=== PATIENT | male | born 1990 | race Caucasian/White ===

== ENCOUNTER 2018-04-12 13:19 | Emergency (ER) | payer OTHER, SELFPAY ==
[2018-04-12 13:20] VITALS: BP 162/95; PULSE 79; RESP 18; TEMP 36.6; O2SAT 99; BMI 28.6
--- NOTE | 2018-04-12 14:08 | US_ITS ---
STUDY: SCROTUM ULTRASOUND REASON FOR EXAM: Male, 28 years old. Pain/tenderness of the left testicle. TECHNIQUE: Ultrasound evaluation of the scrotum was performed with color Doppler and static sainz-scale imaging. COMPARISON: None. FINDINGS: RIGHT TESTICLE INTRATESTICULAR: There is a normal size of the right testicle. The right testicle measures 3.5 cm x 2.4 cm x 2.2 cm. There is a homogenous echotexture. There is normal arterial and normal venous vascularity. There is no demonstrated right testicular mass or cyst. EXTRATESTICULAR: The epididymis is normal in size. The epididymis head measures 0.7 cm. There is normal vascularity of the epididymis. There is a well-defined cystic structure within the epididymis, without internal echoes, consistent with an epididymal cyst. This measures 3 mm x 3 mm x 2 mm. There is a small hydrocele. There is no demonstrated varicocele. There is no demonstrated extratesticular mass or cyst. LEFT TESTICLE INTRATESTICULAR: There is a normal size of the left testicle. The left testicle measures 3.6 cm x 2.7 cm x 2.0 cm. There is a homogenous echotexture. There is normal arterial and normal venous vascularity. There is no demonstrated left testicular mass or cyst. Tiny calcifications are seen within the testicle. EXTRATESTICULAR: The epididymis is normal in size. The epididymis head measures 0.8 cm. There is normal vascularity of the epididymis. There is no demonstrated epididymal cystic structure. There is a small hydrocele. There are prominent extratesticular veins consistent with a varicocele. There is no demonstrated extratesticular mass or cyst. US/Testicular with Arterial Flow IMPRESSION: Small bilateral hydroceles. Small right epididymal cyst. Electronically Signed: Jacek Bolden MD at 15:13 EDT Tel [phone], Service support ,
[2018-04-12] MEDS: Ketorolac 60 MG/2 ML Vial IM (14:19)
[2018-04-12 14:31] LABS: Mucous, Urine 0 SEEN /hpf (<or=2+); Red Blood Cells-Urine 0 SEEN /hpf (0-5); Squamous Epithelial Cells - UA 0 SEEN /hpf (0-5); White Blood Cells 0 SEEN /hpf (0-5)
[2018-04-12 14:34] LABS: Color, Urine Yellow (Yellow); Glucose, Dipstick Normal (Normal); Ketone-Dipstick Negative (Negative); Leukocyte Esterase-Dipstick Negative /ul (Negative); Nitrite-Dipstick Negative (Negative); Occult Blood-Urine Negative /ul (Negative); Protein-Dipstick Negative (Negative); Specific Gravity, Urine 1.025 (1.002-1.030); Urine Bilirubin Dipstick Negative (Negative); Urine Clarity Clear (Clear); Urine Urobilinogen Normal (Normal)
[2018-04-12 14:41] LABS: Bacteria RARE /hpf (None Seen)
--- NOTE | 2018-04-12 15:53 | ED.DCSUM_ITS ---
- ER Visit Summary Date of Service: 04/12/18 Chief Complaint: [Left testicle pain] History of Present Illness: The patient is a 28 M [presents to the emergency department with pain in his left testicle started about 2 hours ago. Patient states that he just use the restroom and urinated and when he pulled his boxers up he brushed against his left testicle noticed discomfort. Patient states that discomfort is progressively worsened. Patient having more discomfort with ambulation now. He denies any abdominal pain or back pain. Patient denies any urinary symptoms. Patient denies any fever. Patient denies any trauma to his testicles however he states that he does work out and does run. Patient with no history of STDs and he is monogamous with his partner who he just got engaged to 2 weeks ago.] Physical Examination: [HEENT-PERRLA, EOMI. Cranial nerves II through XII grossly intact. TMs clear. Mucous membranes moist. No adenopathy. Cardiovascular-regular rate and rhythm without murmur or ectopy Lungs-clear to auscultation, chest wall stable without crepitus or subcu emphysema Abdomen-normoactive bowel sounds, soft, nontender, no rebound or rigidity, no peritoneal signs. exam-circumcised male with no penile discharge. Patient has tenderness over the left epididymis that reproduces his pain. There is no evidence of torsion. Normal cremasteric reflex bilaterally. Extremities-intact ?4, normal range of motion, normal pulses, atraumatic] Test Results: [Urinalysis obtained showed no evidence for infection. Testicular ultrasound showed no evidence for torsion. Patient was noted to have a right epididymal cyst and bilateral small hydroceles.] Emergency Department Course and Treatment: [Patient received Toradol 60 mg IM and 1 dose of Bactrim.] Treatment Plan: [Patient will be given a prescription for Bactrim and [place] and referral to urologist on-call Dr. Cleveland Stuart.] Disposition: [Discharged home stable condition] Impression: [Left testicle pain-suspect early epididymitis] This note was generated with [employer] software. It may contain incorrect words, spelling, and punctuation that were not noted in review of the chart prior to signing ED Disposition - Plan for ED Patient: Chief Complaint: Male Pain/Injury Referrals: Siddhartha Heaton III, MD [Primary Care Provider] -
--- NOTE | 2018-04-12 15:53 | ED.DEP ---
ED Disposition - Plan for ED Patient: Chief Complaint: Male Pain/Injury Instructions: ED Epididymitis Prescriptions: Hydrocodone Bitart/Apap 5-325 [[place] 5MG-325MG] 1 tab PO Q4H PRN PRN 2 Days #10 tab PRN Reason: Pain Smz/Tmp Ds [Bactrim Ds] 1 tab PO BID #28 tab Referrals: Siddhartha Heaton III, MD [Primary Care Provider] - 3-5 Days Aden Stuart MD [STAFF PHYSICIAN] - 5-7 Days
[2018-04-12] MEDS: Smz/Tmp Ds Tablet 1 TABLET PO (15:58)
--- NOTE | 2018-04-12 15:59 | DCINST.ED_ITS ---
ED Disposition - Plan for ED Patient: Chief Complaint: Male Pain/Injury Instructions: ED Epididymitis Prescriptions: Hydrocodone Bitart/Apap 5-325 [[place] 5MG-325MG] 1 tab PO Q4H PRN PRN 2 Days #10 tab PRN Reason: Pain Smz/Tmp Ds [Bactrim Ds] 1 tab PO BID #28 tab Referrals: Siddhartha Heaton III, MD [Primary Care Provider] - 3-5 Days Aden Stuart MD [STAFF PHYSICIAN] - 5-7 Days
[2018-04-12 16:06] VITALS: BP 134/77; PULSE 68; RESP 16; O2SAT 98
--- NOTE | 2018-04-12 16:07 | ED.RN ---
REVIEWED D/C INSTRUCTIONS, FOLLOW UP CARE, PRESCRIPTIONS, AND S/S THAT WOULD WARRANT A RETURN TO THE ED WITH PT. PT VERBALIZED AN UNDERSTANDING AND DENIES FURTHER QUESTIONS FOR THIS RN. PT SKIN P/W/D, RESP EVEN AND UNLABORED, PT A&O X 3, NO DISTRESS NOTED. PT AMBULATED OUT OF ED, GAIT STEADY.
== END 2018-04-12 16:08 | disposition home or self-care (01) ==
LOC: ED 15:15
PROVIDERS: Emergency Provider Emergency Medicine; Family Provider Family Medicine; PCP Family Medicine
DX: N45.1 Epididymitis (principal); N43.3 Hydrocele, unspecified; N50.812 Left testicular pain
CPT/HCPCS: 76870; 81001; 93976; 96372; 99283

== ENCOUNTER → 2019-10-28 09:53 | Outpatient (CLI) | payer OTHER, SELFPAY ==
--- NOTE | 2019-10-28 10:01 | RAD_ITS ---
CLINICAL HISTORY: Male, 29 years old. Right shoulder pain. PROCEDURE: ARTHROGRAM - RIGHT SHOULDER CONSENT: The procedure as well as the benefits and possible complications including infection and bleeding were expanding to the patient. Informed consent was obtained. FLUOROSCOPY TIME (if supplied): (65 seconds) minutes/seconds Injection Information: 10 cc of dilute MRI contrast. Number of images obtained: 4 TECHNIQUE: (All elements of maximal sterile barrier technique followed, including US elements as applicable) The overlying skin was prepped and draped in the usual sterile fashion. Following local anesthetic application and under direct fluoroscopic guidance, a 22-gauge spinal needle was placed into the shoulder joint. 2 cc of Isovue-300 was injected. Following this, 10 cc of dilute MRI contrast was injected. The patient tolerated the procedure well. RAD/Arthrogram Shoulder w/ MRI IMPRESSION: Successful right shoulder arthrogram for MRI imaging. Electronically Signed: Jacek Bolden, at 12:47 EST , Service support ,
--- NOTE | 2019-10-28 10:01 | MRI_ITS ---
STUDY: MR RIGHT SHOULDER ARTHROGRAPHY REASON FOR EXAM: Right shoulder pain for 12 weeks, lifting injury. TECHNIQUE: Standardized fat and water weighted pulse sequences were obtained in all 3 orthogonal planes after intra-articular instillation of dilute Dot[place]m. COMPARISON: Arthrogram images obtained prior to the MRI. FINDINGS: Normal supraspinatus tendon. Normal infraspinatus tendon. Normal subscapularis tendon. Normal teres minor tendon. Normal supraspinatus muscle. Normal infraspinatus muscle. Normal subscapularis muscle. Normal teres minor muscle. Normal glenohumeral articulation. Normal humeral head and visualized proximal humerus. Normal biceps labral complex. Normal intracapsular long biceps tendon. Normal labrum. Normal capsulo- ligamentous complex. Normal rotator interval. Normal acromioclavicular articulation. There is a Type II morphology (curved), with a neutral orientation. There is a small volume of subacromial-subdeltoid bursal fluid (T2 coronal images 12-14). Normal visualized coracohumeral and coracoacromial ligaments. There is mild diffuse edema in the proximal anterior deltoid muscle. Normal trapezius muscle. MRI/Upper Ext Jt Only W/Contrast IMPRESSION: Mild subacromial-subdeltoid bursitis. No demonstrated rotator cuff tear or labral tear. Electronically Signed: Werner Salcido MD at 12:23 EST Tel , Service support ,
== END ==
PROVIDERS: Family Provider Family Medicine; PCP Family Medicine; Referring Provider Physician Assistant; Visit Provider Physician Assistant
DX: M25.511 Pain in right shoulder (principal); S43.491A Other sprain of right shoulder joint, initial encounter
CPT/HCPCS: 23350; 73222; 77002; A9575; Q9967